=== PATIENT | female | born 1965 | race Caucasian/White ===

== ENCOUNTER 2024-03-21 11:10 | Day surgery (SDC) | payer BC ==
[~2024-03-21 11:10] MED LIST: Sodium Chloride 0.9% 10 ML Syringe FLUSH PRN
[2024-03-21] MEDS: Lactated Ringers 1,000 ML IV SCH (11:35)
[2024-03-21] MEDS ORDERED: Propofol 200 MG/20 ML SDV ONE ×3 (11:44→12:18)
[2024-03-21] MEDS ORDERED: Lidocaine 2% 5 ML SDV ONE (11:44)
[2024-03-21] MEDS ORDERED: Ondansetron 4 MG/2 ML SDV ONE (11:55)
[2024-03-21] MEDS ORDERED: Ondansetron 4 MG/2 ML SDV IVPUSH PRN (12:49)
[2024-03-21] MEDS ORDERED: HYDROmorphone 0.5 MG/0.5 ML Syringe IVPUSH PRN (12:49)
[2024-03-21] MEDS ORDERED: fentaNYL 100 MCG/2 ML SDV IVPUSH PRN (12:49)
[2024-03-21 13:52] VITALS: BP 124/64; PULSE 70
[2024-03-21] MEDS ORDERED: Sodium Chloride 0.9% 10 ML Syringe FLUSH SCH (21:00)
== END 2024-03-21 13:25 | disposition home or self-care (01) ==
LOC: JD.SDS 11:10
PROVIDERS: ATTEND Surgery
DX: D12.3 Benign neoplasm of transverse colon (principal); D64.9 Anemia, unspecified; I10 Essential (primary) hypertension; Z79.899 Other long term (current) drug therapy; Z98.84 Bariatric surgery status
CPT/HCPCS: 43235; 45380; J2704; J7120; 00813; J2405; J3490